=== PATIENT | female | born 1980 | race Caucasian/White ===

== ENCOUNTER 2023-10-22 06:54 | Day surgery (SDC) | payer BC, SELFPAY ==
[2023-10-21 08:17] LABS: % Basophils 0.5 % (0-2); % Eosinophils 1.2 % (0-6); % Immature Granulocytes 0.3 % (0-0.5); % Lymphocytes 25.9 % (20.5-51.1); % Monocytes 8.5 % (1.7-9.3); % Neutrophils 63.6 % (42.2-75.2); Absolute Eosinophils 0.1 10^3/uL (0-0.7); Absolute Monocytes 0.7 10^3/uL (0.1-0.6); Absolute Neutrophils 4.9 10^3/uL (1.4-6.5); Hematocrit 39.8 % (37.0-47.0); Hemoglobin 13.2 g/dL (12.0-16.0); Mean Corp Hgb Conc. 33.2 g/dL (33.0-37.0); Mean Corpuscular Hgb 30.8 pg (27.0-31.0); Mean Corpuscular Volume 92.8 fL (81.0-99.0); Mean Platelet Volume 9.6 fL (7.4-10.4); Nucleated Red Blood Cells % 0 %; Platelet Count 259 10^3/uL (130-400); Red Blood Cell Count 4.29 10^6/uL (4.20-5.40); White Blood Cell Count 7.7 10^3/uL (4.8-10.8)
[2023-10-21 08:54] LABS: Blood Urea Nitrogen 19 mg/dl (7-17); Calcium 9.4 mg/dl (8.4-10.2); Carbon Dioxide 25 mmol/L (22-30); Chloride 107 mmol/L (98-107); Glucose 81 mg/dl (70-99); Iron 91 ug/dl (37-170); Potassium 4.1 mmol/L (3.5-5.1); Sodium 137 mmol/L (135-145); eGFR > 60.00
[2023-10-21 09:03] LABS: Percent Saturation 31 % (20-50); Total Iron Binding Capacity 288 ug/dl (265-497)
[2023-10-21 09:20] LABS: TSH Reflex To Free T4 3.02 uIU/ml (0.47-4.68)
[2023-10-21 09:24] LABS: Ferritin 47.6 ng/ml (6.24-137)
[2023-10-22] VITALS (8 sets, daily range): BP systolic 99–110; BP diastolic 67–77; BMI 31.3
[2023-10-22] MEDS: TYLENOL 1000 MG PO (12:00)
[2023-10-22] MEDS: CELEBREX 200 MG PO (12:00)
[2023-10-22] MEDS: NORMOSOL-R 1000 IV (12:11)
[2023-10-22 12:17] LABS: HCG, Urine Qualitative Screen Negative
[2023-10-22] MEDS: SUBLIMAZE 25 MCG IV (16:17)
[2023-10-22 21:41] LABS: Transferrin 238 mg/dL (200-360)
== END 2023-10-22 17:55 | disposition home or self-care (01) ==
LOC: SDS 06:54
PROVIDERS: ATTENDING PHYSICIAN Obstetrics & Gynecology; FAMILY PHYSICIAN Nurse Practitioner Family
DX: N70.11 Chronic salpingitis (principal); R10.2 Pelvic and perineal pain
CPT/HCPCS: 58661; 88305; 36415; 80048; 81025; 82728; 83540; 83550; 84443; 84466; 85025; 86850; 86900; 86901; C1776

== ENCOUNTER → 2023-11-07 09:35 | Outpatient (REF) | payer BC, SELFPAY | LOC: WDC 09:35 | PROVIDERS: ATTENDING PHYSICIAN Obstetrics & Gynecology; FAMILY PHYSICIAN Nurse Practitioner Family | DX: N63.31 Unspecified lump in axillary tail of the right breast (principal) | CPT/HCPCS: 76642; 77062; 77066 ==